=== PATIENT | male | born 1940 | race Caucasian/White ===

== ENCOUNTER 2019-03-31 17:49 | Emergency (ER) | payer OTHER, SELFPAY ==
[2019-03-31 17:54] VITALS: BP 173/87; PULSE 78; RESP 14; TEMP 37.2; O2SAT 99
--- NOTE | 2019-03-31 17:58 | DI.RAD.S_ITS ---
PROCEDURE: XR FOOT LT MIN 3V INDICATIONS: fall w/ pain mid foot. TECHNIQUE: 3 views of the foot were acquired. COMPARISON: None. 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 No suspicious bony lesions. Soft tissues: No tibiotalar joint effusion. Achilles tendon appears normal. IMPRESSION: No definite acute trauma found. Severe degenerative change first MTP joint. No joint effusion or significant soft tissue swelling is seen. Dictated by: Bhupinder Tran M.D. on 03/31/2019 at 19:13 Approved by: Bhupinder Tran M.D. on 03/31/2019 at 19:14
--- NOTE | 2019-03-31 19:14 | ED_ITS ---
HPI - Extremity Injury (Lower) <PASCUAL Gramajo - Last Filed: 03/31/19 19:42> General Chief Complaint: Extremity Injury, Lower Stated Complaint: L foot pain Time Seen by Provider: 03/31/19 17:59 Source: patient Mode of arrival: Ambulatory Limitations: no limitations History of Present Illness HPI Narrative: 78-year-old male complains of a dull aching 5/10 left-sided lateral foot pain after stepping off a porch. He states he 1st noticed the pain was able to bear weight but an hour later the pain worsened. He denies any previous injury to his foot. He denies any erythema or lesions. He denies hitting his head, chest pain, shortness of breath, dysuria, dizziness, or other concerning symptoms. Related Data Home Medications Medication Instructions Recorded Confirmed No Known Home Medications 03/31/19 03/31/19 Allergies Allergy/AdvReac Type Severity Reaction Status Date / Time No Known Drug Allergies Allergy Verified 03/31/19 17:58 Review of Systems <PASCUAL Gramajo - Last Filed: 03/31/19 19:42> Review of Systems Narrative: REVIEW OF SYSTEMS: GENERAL: Denies fever or chills. HENT: No head trauma. EYES: No double vision or vision loss. CARDIOVASCULAR: No chest pain or syncope. RESPIRATORY: No shortness of breath or cough. GASTROINTESTINAL: No nausea, vomiting, diarrhea, or constipation. GENITOURINARY: No flank pain or dysuria. MUSCULOSKELETAL: Complains of left foot pain, see HPI. INTEGUMENTARY: No rash, lesions, or pruritus. NEURO: No numbness, tingling. PSYCH: No behavior or mood changes. Patient History <PASCUAL Gramajo - Last Filed: 03/31/19 19:42> Medical/Surgical History Medical History No significant medical problems (Acute) Social History Smoking Status: Never smoker Family/Social History Social History Smoking Status: Never smoker alcohol intake frequency: 0-2 drinks per day Substance Use Type: does not use Exam <PASCUAL Gramajo - Last Filed: 03/31/19 19:42> Narrative Exam Narrative: PHYSICAL EXAMINATION: GENERAL: Well groomed, alert, and cooperative. Answers questions promptly and appropriately. Vital signs noted. HENT: Normocephalic, atraumatic. EYES: Symmetrical, sclera white, no periorbital swelling. CARDIOVASCULAR: Regular rate. RESPIRATORY: Normal respiratory rate, trachea midline, airway patent. No stridor, nasal flaring or accessory muscle use. MUSCULOSKELETAL: Tenderness to mid 5th metatarsal on left foot. Very minor swelling, no ecchymosis or erythema. 5/5 strength against resistance to right and left feet. Normal gait and coordination. Equal tone and mass bilaterally. EXTREMITIES: CMS intact. No pedal edema. SKIN: Warm, dry, soft, appropriate color for ethnicity. No lesions, rashes, or wounds. NEURO: Alert and Oriented X 3. No sensory deficits. PSYCH: Appropriate affect and mood. Initial Vital Signs Initial Vital Signs: Vital Signs Temperature 98.9 F 03/31/19 17:54 Pulse Rate 78 03/31/19 17:54 Respiratory Rate 14 03/31/19 17:54 Blood Pressure 173/87 H 03/31/19 17:54 Pulse Oximetry 99 03/31/19 17:54 <Nikki Purcell DO - Last Filed: 04/01/19 03:45> Initial Vital Signs Initial Vital Signs: Vital Signs Temperature 98.9 F 03/31/19 17:54 Pulse Rate 78 03/31/19 17:54 Respiratory Rate 14 03/31/19 17:54 Blood Pressure 173/87 H 03/31/19 17:54 Pulse Oximetry 99 03/31/19 17:54 Course <PASCUAL Gramajo - Last Filed: 03/31/19 19:42> Orders Ordered: ED Orders 03/31/19 17:58 XR foot LT min 3V Stat Vital Signs Vital signs: Vital Signs - 8 hr 03/31/19 17:54 Temperature 98.9 F Pulse Rate 78 Respiratory Rate 14 Blood Pressure 173/87 H Pulse Oximetry 99 <Nikki Purcell DO - Last Filed: 04/01/19 03:45> Orders Ordered: ED Orders 03/31/19 17:58 XR foot LT min 3V Stat Vital Signs Vital signs: Vital Signs - 8 hr 03/31/19 17:54 Temperature 98.9 F Pulse Rate 78 Respiratory Rate 14 Blood Pressure 173/87 H Pulse Oximetry 99 MDM - Extremity Injury (Lower) <PASCUAL Gramajo - Last Filed: 03/31/19 19:42> Lab Data Attestation: I reviewed the patient's lab results. Imaging Data Foot XR: Radiologist's impression: [address] [address] XRay Report Signed Patient: Geovanni Rock MMR#: [id number] : 9Acct:[id number] Age/Sex: 78 / MDate of Service: 03/31/19 Loc: ED Accession Number: [id number] Procedure: XR foot LT min 3V Ordering Provider: Luis Arrington D.O. PROCEDURE: XR FOOT LT MIN 3V INDICATIONS: fall w/ pain mid foot. TECHNIQUE: 3 views of the foot were acquired. COMPARISON: None. 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 No suspicious bony lesions. Soft tissues: No tibiotalar joint effusion. Achilles tendon appears normal. IMPRESSION: No definite acute trauma found. Severe degenerative change first MTP joint. No joint effusion or significant soft tissue swelling is seen. Dictated by: Bhupinder Tran M.D. on 03/31/2019 at 19:13 Approved by: Bhupinder Tran M.D. on 03/31/2019 at 19:14 [facility] Narrative Medical decision making narrative: Exam and history are consistent with foot strain. X-rays are negative for fractures. Patient denies needing any crutches or a walker as he states he can't put weight on his foot. He was offered an Carmine bandage but declined as he has multiple home. Return precautions given and follow-up instructions discussed. Discharge Plan Departure Patient Disposition: Home Clinical Impression: Acute foot pain Qualifiers: Laterality: left Qualified Code(s): M79.672 - Pain in left foot Discharge Date/Time: 03/31/19 19:34 Instructions: DI for Foot Sprain Activity Restrictions/Additional Instructions: Thank you for entrusting me with your care today. As discussed, your x-rays are negative for any fractures. He may use ice as needed for pain. Try to elevate your foot the next few days as often as possible. Follow up with your primary care provider in the next few weeks if your symptoms continue. Return emergency department if he develops chest pain, shortness of breath, syncope, slurred speech, or other concerning symptoms. Prescriptions: No Action No Known Home Medications RF: 0 Referrals: Shukri Duke MD [Primary Care Provider] -
== END 2019-03-31 19:34 | disposition home or self-care (01) ==
PROVIDERS: Emergency Provider Nurse Practitioner; PCP Internal Medicine
DX: M79.672 Pain in left foot (principal)
CPT/HCPCS: 73630; 99282; 99283

== ENCOUNTER → 2019-11-03 09:46 | Outpatient (CLI) | payer OTHER, SELFPAY ==
[2019-11-04 06:00] LABS: COVID19 Sendout Not Detected (Not Detect)
== END ==
PROVIDERS: PCP Internal Medicine; Visit Provider Registered Nurse
DX: Z01.818 Encounter for other preprocedural examination (principal)
CPT/HCPCS: 87635

== ENCOUNTER → 2020-07-15 14:59 | Outpatient (ROUT) | payer OTHER, SELFPAY ==
[2020-07-15 15:14] LABS: Aspartate Aminotransferase 31 IU/L (17-59); BUN Creatinine Ratio 10.7 (6-22); Blood Urea Nitrogen 9 mg/dL (9-20); Calcium 9.1 mg/dL (8.4-10.2); Carbon Dioxide 26 mmol/L (22-32); Chloride 106 mmol/L (98-107); Cholesterol 173 mg/dL (140-199); Estimated Glomerular Filt Rate > 60.0 mL/min (>60); Glucose 100 mg/dL (80-110); HDL Cholesterol 79 mg/dL (40-60); HEMOLYSIS < 15 (0-50); LDL Cholesterol Calculated 86 mg/dL (<100); Potassium 3.9 mmol/L (3.4-5.1); Sodium 138 mmol/L (137-145); Triglycerides 41 mg/dL (35-150)
== END ==
PROVIDERS: PCP Internal Medicine; Visit Provider Internal Medicine
DX: I10 Essential (primary) hypertension (principal); E78.2 Mixed hyperlipidemia
CPT/HCPCS: 80048; 80061; 84450

== ENCOUNTER → 2021-03-09 12:39 | Outpatient (CLI) | payer OTHER, SELFPAY ==
--- NOTE | 2021-03-09 12:44 | DI.RAD.S_ITS ---
PROCEDURE: XR LUMBAR SPINE 2-3V INDICATIONS: LT SIDE SCIATICA TECHNIQUE: 3 views of the lumbar spine were acquired. COMPARISON: None. FINDINGS: Bones: 5 [id number] vertebrae are present. There is grade 1 anterolisthesis of L3 on L4, L4 on L5 and L5 on S1. Degenerative disc disease is present, moderate at L4-L5 and L5-S1, [id number] at L1-L2, L2-L3 and L3-L4. Severe facet arthropathy at L2-L3, L3-L4, L4-L5 and L5-S1. No vertebral body compression fractures. No suspicious bony lesions. Soft tissues: Overlying bowel gas pattern is normal. No suspicious soft tissue calcifications. IMPRESSION: Moderate degenerative disc disease and severe facet arthropathy in lumbar spine. In this patient with sciatica, please consider MRI to evaluate the possibility of nerve root impingement. Dictated by: Jj Akhtar M.D. on 03/09/2021 at 14:46 Approved by: Jj Akhtar M.D. on 03/09/2021 at 14:48
== END ==
PROVIDERS: PCP Internal Medicine; Referring Provider Internal Medicine; Visit Provider Internal Medicine
DX: M54.32 Sciatica, left side (principal); M51.36 Other intervertebral disc degeneration, lumbar region; M47.816 Spondylosis without myelopathy or radiculopathy, lumbar region
CPT/HCPCS: 72100

== ENCOUNTER → 2021-03-25 10:59 | Outpatient (CLI) | payer OTHER, SELFPAY ==
--- NOTE | 2021-03-25 | DI.MRI.S_ITS ---
PROCEDURE: MR LUMBAR SPINE WO CON INDICATIONS: Spinal stenosis, lumbar region with neurogenic cla TECHNIQUE: Noncontrast sagittal T1 spin echo and T2 fast echo, sagittal STIR, axial T1 and T2 fast spin echo through the lumbar spine. In cases with scoliosis, additional coronal T2 fast spin echo may be performed. COMPARISON: [facility], CR, XR LUMBAR SPINE 2-3V, 03/09/2021, 12:43. [facility] [place], CR, XR LUMBAR SPINE 2 OR 3 VIEWS, 03/15/2021, 9:37. FINDINGS: Image quality: Excellent. Alignment and Curvature: There is grade 1 L4-L5 anterolisthesis secondary to facet hypertrophy. There is grade 1 L5-S1 anterolisthesis secondary to bilateral pars interarticularis defects. Bone Marrow: Reactive endplate changes noted adjacent the L4-L5 and L5-S1 discs. No acute vertebral body compression fractures. Spinal Cord: Conus medullaris terminates at the L1 level. Visualized cord demonstrates normal signal and size. Paraspinous Soft Tissues: No paravertebral masses. T12-L1: Loss of disc signal. Mild, diffuse disc bulge. No central stenosis. No neural foraminal narrowing. No neural compression. L1-L2: Loss of disc signal. Mild, diffuse disc bulge. Mild narrowing of the central canal. No neural foraminal narrowing. No neural compression. L2-L3: Loss of disc signal. Mild, diffuse disc bulge. Small left central disc protrusion. Mild bilateral facet hypertrophy. Moderate ligamentum flavum hypertrophy. Mild to moderate narrowing of the central canal. Left central disc protrusion abuts and slightly displaces the traversing left L3 nerve root. Mild to moderate right and mild left neural foraminal narrowing. L3-L4: Loss of disc signal. Mild, diffuse disc bulge. Ambc-rf-[id number] bilateral facet hypertrophy. Mild ligamentum flavum hypertrophy. Mild to moderate narrowing of the central canal. Moderate right and mild left neural foraminal narrowing. No neural compression. L4-L5: Loss of disc signal and height. Mild, diffuse disc bulge. Severe bilateral facet hypertrophy. Mild narrowing of the central canal. Moderate bilateral neural foraminal narrowing. No neural compression. L5-S1: Loss of disc signal and height. Mild, diffuse disc bulge. Severe bilateral facet hypertrophy. Mild narrowing of the central canal. Severe bilateral neural foraminal narrowing with compression of the exiting L5 nerve roots. IMPRESSION: 1. Grade 1 degenerative L4-L5 and isthmic L5-S1 spondylolisthesis. 2. Multilevel degenerative disc disease. 3. Multilevel facet arthropathy. 4. No severe central canal narrowing. 5. Severe bilateral L5-S1 neural foraminal narrowing with compression of the exiting bilateral L5 nerve roots. 6. Small left central L2-L3 disc protrusion which abuts and displaces the traversing left L3 nerve root. Dictated by: Meghan Smith MD, PhD on 03/25/2021 at 13:14 Approved by: Meghan Smith MD, PhD on 03/25/2021 at 13:22
== END ==
PROVIDERS: PCP Internal Medicine; Referring Provider Physical Medicine & Rehabilitation Pain Medicine; Visit Provider Physical Medicine & Rehabilitation Pain Medicine
DX: M48.062 Spinal stenosis, lumbar region with neurogenic claudication (principal); M43.17 Spondylolisthesis, lumbosacral region; M51.36 Other intervertebral disc degeneration, lumbar region; M48.07 Spinal stenosis, lumbosacral region; M51.26 Other intervertebral disc displacement, lumbar region; M51.37 Other intervertebral disc degeneration, lumbosacral region
CPT/HCPCS: 72148

== ENCOUNTER 2022-09-16 17:42 | Emergency (ER) | payer OTHER, SELFPAY ==
[2022-09-16 17:51] VITALS: BP 182/97; PULSE 79; RESP 17; TEMP 37.6; O2SAT 96; BMI 25.7
[2022-09-16 18:43] VITALS: BP 197/93; RESP 18; O2SAT 97
--- NOTE | 2022-09-16 19:29 | ED_ITS ---
HPI - Extremity Injury (Upper) <Bryce Llanos PA-C - Last Filed: 09/16/22 19:48> General Chief Complaint: Extremity Injury, Upper Stated Complaint: pain in rt elbow sent by [facility] Time Seen by Provider: 09/16/22 18:44 Source: patient Mode of arrival: Ambulatory History of Present Illness HPI narrative: This is an 82-year-old male presents to the emergency department complaining of right elbow pain onset 1 week ago. He is not recall any accident or injury to the area. He denies any fevers but just states that he has significant pain to the right elbow radiating to the right shoulder. Denies any numbness, weakness, inability to move his fingers, or any other concerning signs or symptoms. Denies any fevers or any other systemic symptoms. Related Data Previous Rx's Medication Instructions Recorded colchicine 0.6 mg capsule 0.6 mg PO DAILY 5 days #6 caps 09/16/22 Allergies Allergy/AdvReac Type Severity Reaction Status Date / Time No Known Drug Allergies Allergy Verified 09/16/22 17:53 Review of Systems <Bryce Llanos PA-C - Last Filed: 09/16/22 19:48> Review of Systems Narrative: GENERAL: Denies chills, fatigue, malaise, fever, sweats. HEENT: Denies sinus pain, ear pain, sore throat, difficulty swallowing, dizziness. RESPIRATORY: Denies dyspnea, cough, wheezing, hemoptysis, sputum. CARDIOVASCULAR: Denies chest pain, palpitations, orthopnea, edema, GASTROINTESTINAL: Denies nausea, vomiting, abdominal pain, diarrhea, constipation, melena. : Denies dysuria, frequency, incontinence, hematuria, urinary retention. MUSCULOSKELETAL: Right upper extremity pain SKIN: Denies rash, skin lesions, or other NEUROLOGIC: Denies weakness, headache, numbness, change in speech, confusion, seizures, incoordination. PSYCHIATRIC: No concerning psychosocial issues. 12 point review of systems is negative except for those stated above Patient History <Bryce Llanos PA-C - Last Filed: 09/16/22 19:48> Medical History Chronic insomnia Constipation by delayed colonic transit Do not resuscitate Essential hypertension Foot pain Hearing loss Mixed hyperlipidemia No significant medical problems Obstructive sleep apnea Ocular migraine Rheumatoid arthritis Sleep apnea Family History Mother Cancer Brother Diabetes mellitus Social History Smoking Status: Former smoker Smoking Status: Former smoker alcohol intake frequency: a few times a week Substance Use Type: does not use Exam <Bryce Llanos PA-C - Last Filed: 09/16/22 19:48> Narrative Exam Narrative: GENERAL: Well-developed patient, in mild distress. HEAD: Atraumatic. Normocephalic. EYES: Pupils equal round and reactive. Extraocular motions intact. No scleral icterus. No injection or drainage. ENT: Nose without bleeding, purulent drainage. Throat without erythema, tonsillar hypertrophy or exudate. Airway patent. NECK: Trachea midline. Non tender CARDIOVASCULAR: Regular rate and rhythm without murmurs, gallops, or rubs. RESPIRATORY: Clear to auscultation. Breath sounds equal bilaterally. No wheezes, rales, or rhonchi. GASTROINTESTINAL: Abdomen soft, non-tender, nondistended. EXTREMITIES: Right elbow appears larger than left although the patient states that this is chronic for him. Patient is neurovascularly intact throughout with 3+ radial pulses bilaterally. Tenderness to palpation generalized to the right elbow. No joint stiffness noted although patient is painful with flexion and extension at the elbow. No erythema around the joint. BACK: Nontender without deformity or crepitance. No flank tenderness. NEURO: AOx3. SKIN: No rash or erythema of visible areas Initial Vital Signs Initial Vital Signs: Vital Signs Temperature 99.6 F 09/16/22 17:51 Pulse Rate 79 09/16/22 17:51 Respiratory Rate 17 09/16/22 17:51 Blood Pressure 182/97 H 09/16/22 17:51 Pulse Oximetry 96 09/16/22 17:51 Oxygen Delivery Method Room Air 09/16/22 17:51 <Nikki Purcell DO - Last Filed: 09/17/22 07:12> Initial Vital Signs Initial Vital Signs: Vital Signs Temperature 99.6 F 09/16/22 17:51 Pulse Rate 79 09/16/22 17:51 Respiratory Rate 17 09/16/22 17:51 Blood Pressure 182/97 H 09/16/22 17:51 Pulse Oximetry 96 09/16/22 17:51 Oxygen Delivery Method Room Air 09/16/22 17:51 Course <Bryce Llanos PA-C - Last Filed: 09/16/22 19:48> Orders Ordered: Discontinued Medications Ketorolac Tromethamine (Ketorolac 30 Mg/Ml Vial) 15 mg IM NOW ONE Stop: 09/16/22 19:17 Last Admin: 09/16/22 19:43 Dose: 15 mg Documented By: SPF Vital Signs Vital signs: Vital Signs - 8 hr 09/16/22 17:51 09/16/22 18:43 09/16/22 19:42 Temperature 99.6 F Pulse Rate 79 69 Respiratory Rate 17 18 18 Blood Pressure 182/97 H 197/93 H 187/94 H Pulse Oximetry 96 97 96 Oxygen Delivery Method Room Air Room Air Room Air <Nikki Purcell DO - Last Filed: 09/17/22 07:12> Orders Ordered: Discontinued Medications Ketorolac Tromethamine (Ketorolac 30 Mg/Ml Vial) 15 mg IM NOW ONE Stop: 09/16/22 19:17 Last Admin: 09/16/22 19:43 Dose: 15 mg Documented By: SPF Vital Signs Vital signs: Vital Signs - 8 hr 09/16/22 17:51 09/16/22 18:43 09/16/22 19:42 Temperature 99.6 F Pulse Rate 79 69 Respiratory Rate 17 18 18 Blood Pressure 182/97 H 197/93 H 187/94 H Pulse Oximetry 96 97 96 Oxygen Delivery Method Room Air Room Air Room Air MDM - Extremity Injury (Upper) <Bryce Llanos PA-C - Last Filed: 09/16/22 19:48> MDM Narrative Medical decision making narrative: MDM * differential diagnosis includes but not limited to right elbow fracture, septic joint, lateral epicondylitis, gout * Prior records reviewed: Patient was seen at the walk-in clinic just previously advised to come to the emergency department for further pain evaluation treatments * My lab interpretation: None * My imgaing interpretation: None * Clinical Decision Rules/Scores evaluated: None * Independent discussions with: None ED Course: This is a 82-year-old male presenting to the emergency department due to right elbow pain. Offered a right elbow x-ray of the patient declined as there was no acute injury to the area and he had low concern or suspicion for any fractures. Patient joint did not appear erythematous or warm to the touch and did not expressed any joint stiffness concerning for septic joint. Maybe muscular in nature and recommended rest, ice, and NSAIDs. Also prescribed colchicine this is any kind of gout flare. Patient's right elbow appeared larger than the left although patient states this is chronic for him. The remainder of his right upper extremity did not appear swollen and low concern for any kind of upper extremity DVT. Recommended follow up with his primary care provider on Monday for further evaluation and possible imaging. Toradol given today in the emergency department. Patient also did present with elevated blood pressure although he did not describe any kind of chest pain, abdominal pain, hematuria, or headaches. Will discharge with recommendations for him to follow up with his primary care provider for further blood pressure rechecks and evaluation. Shared Decision Making: Discussed plan for discharge with the patient who is agreeable Social Considerations: None Disposition: Discharged to home Discharge Plan Departure Patient Disposition: Home Clinical Impression: Elbow pain, right Instructions: DI for Elbow Sprain Activity Restrictions/Additional Instructions: Thank you for coming to the [facility] Emergency Department today. As discussed recommended follow up with the primary care provider for further evaluation regarding the right elbow. I also recommend you speak with him regarding your blood pressure values as they were elevated stay in the emergency department. The Toradol give me today should help with the pain. I have also prescribed a anti-inflammatory medication that may help as well. I hope you feel better soon. Prescriptions: New colchicine 0.6 mg capsule 0.6 mg PO DAILY 5 Days Qty: 6 0RF Rx Instructions: Please take two capsules the first day, then one capsule each day after that Referrals: Hadley Kelly MD [Primary Care Provider] - Stand Alone Forms: Patient Portal/API <Nikki Purcell DO - Last Filed: 09/17/22 07:12> Cosign ED Attending Costateature Attestation: I was immediately available in the department for consultation. Documentation has been reviewed.
[2022-09-16 19:42] VITALS: BP 187/94; PULSE 69; RESP 18; O2SAT 96
[2022-09-16] MEDS: KETOROLAC 30 MG/ML VIAL 15 MG IM (19:43)
--- NOTE | 2022-09-16 19:48 | PC.NURSE ---
Patient states he is not sure what exactly triggered his elbow pain, but he has been working out in his yard yesterday.
== END 2022-09-16 19:53 | disposition home or self-care (01) ==
PROVIDERS: Emergency Provider Physician Assistant Medical; PCP Family Medicine
DX: M25.521 Pain in right elbow (principal)
CPT/HCPCS: 96372; 99283; J1885

== ENCOUNTER → 2025-05-29 08:56 | Outpatient (CLI) | payer OTHER, SELFPAY ==
--- NOTE | 2025-05-29 12:55 | ST.SWALLOW ---
Visit Care Team Role Provider Type Hadley Kelly MD Attending Provider Physician Primary Care Provider Referring Provider Specialty: Family Practice Address: [facility] [place], [address] Email: [email or web address] ST Modified Barium Swallow Study [employer] Modified Barium Swallow Study Start: 05/29/25 10:21 Freq: Status: Active Protocol: Document 05/29/25 10:21 LNK (Rec: 05/29/25 10:52 LNK Desktop) Modified Barium Swallow Study Total Time Visit Start Time 09:00 Visit Stop Time 09:45 Total Visit Minutes [address] Kelly Reason for Referral Dysphagia Setting Setting Outpatient Care Patient Information Identification Type Name,Date of Patient History Pt was seen for a Modified Barium Swallow Study at the referral of Dr. Kelly. According to the pt, he has had difficulty with swallowing for around 8 years. He noted that he eats primarily soups and purees other foods. He reported that he has no difficulty with smooth textured foods (potatoes mashed smoothly, breads if he chews well enough to puree the bolus). He also noted he has no difficulty swallowing liquids. However pills are the most difficult to swallow describing them as not going down the tube, getting stuck and needing a lot of water to flush the pill down. Pt also noted that, at times, he will regurgitate non digested food back into his mouth, then re-swallow Pt denied a PMH of GERD, neurological diagnoses, head/ neck surgery/injury. He has not had pneumonia. Subjective Pt was seated in the flouroscopy chair with directions Observations and procedures explained for him. He indicated he understood and agreed to proceed. Patient Positioning Position View Lat-A/P Imaging Lateral View Textures Administered Trials Presented Thin Liquid via Spoon (IDDSI 0),Thin Liquid via Cup ( IDDSI 0),Regular (IDDSI 7) Barium Tablet Yes The IDDSI Framework Protocol: IDDSI.1 Oral Impairment Source: The Modified Barium Swallow Impairment Profile (MBSImP??) Lip Closure Interlabial escape; no progression to anterior lip Tongue Control Cohesive bolus between tongue to palatal seal During Bolus Hold Bolus Transport/ Brisk tongue motion Lingual Motion Oral Residue Complete oral clearance Initiation of Bolus head at posterior angle of ramus (first hyoid Pharyngeal Swallow excursion) Additional Oral *OME and DKS were observed to be WNL. Impairment *Dentition natural with an upper flipper partial and in Observations good hygiene *Mastication observed with rotary chew pattern. *Good bolus formation, control and AP transition. *Velopharyngeal closure was WNL. Oral phase of swallow WNL Pharyngeal Impairment Source: The Modified Barium Swallow Impairment Profile (MBSImP??) Soft Palate No bolus between soft palate & pharyngeal wall Elevation Laryngeal Elevation Comp.sup.move.thyroid cart.w/comp.approx.arytenoids to epiglot petiole Anterior Hyoid Partial anterior movement Excursion Epiglottic Movement Complete inversion Laryngeal Vestibular Complete; no air/contrast in laryngeal vestibule Closure Pharyngeal Stripping Present - complete Wave Pharyngoesophageal Complete distention & complete duration; no obstruction Segment Opening of flow Tongue Base Trace column of contrast/air betwn tongue base & post. Retraction pharyngeal wall Pharyngeal Residue Trace residue within/on pharyngeal structures Location Valleculae Additional *Hyoid/laryngeal elevation and epiglottic inversion Pharyngeal were judged to be adequate. Impairment *Tongue base retraction was mildly reduced resulting in Observations trace residue. *Pharyngeal stripping wave and cricopharyngeal opening appeared adequate and did not appear to impede bolus flow. *Post-swallow residue was mild primarily at the vallecula *Flash penetration (above the vocal folds with no laryngeal residue - PAS 2) observed x2 with consecutive swallows (e.g., fast rate with large volume) ( Considered to be WNL for pt's age) *No tracheal aspiration observed *Large CP bar noted. did not impede bolus flow Pharyngeal phase of swallow WNL for pt age A/P View Textures Administered Trials Presented Thin Liquid via Cup (IDDSI 0),Extremely Thick Liquid via Spoon (IDDSI 4),Regular (IDDSI 7) The IDDSI Framework Protocol: IDDSI.1 A/P View Observations Pharyngeal Complete Contraction Esophageal Clearance Esophageal retention w/regtrograde flow below Upright Position pharyngoesoph segment Vocal Fold Function Good Esophageal Function Reverse Peristalsis,Narrowing Additional A-P Thin barium liquid, semi-soft/pudding trial and Observations calibrated barium table were provided to the pt for AP trials *Possible small hiatal hernia noted. *Retro flow of esophageal contents with liquid and semisolid trials. Reverse flow to the clavicular level, then slow clearance to the stomach with repeated reverse flow. *With a barium tablet trial, the tablet stopped in that area and was not flushed with additional water. Semi- soft trial was then observed to get to the tablet and stopped/could not pass the tablet. *The retained tablet/semi-soft bolus may be related to pt's report of regurgitation/rumination. It would be possible that, during a meal, continued eating/ swallowing would lead to a stacking effect within the esophagus to the point of needing to eliminate esophageal contents *The MBSS stopped before tablet and semi-solid bolus passed to the stomach GI referral recommended Clinical Impressions Dysphagia Type Esophageal Findings *Possible small hiatal hernia noted. *Retro flow of esophageal contents with liquid and semisolid trials. Reverse flow to the clavicular level, then slow clearance to the stomach with repeated reverse flow. *With a barium tablet trial, the tablet stopped in that area and was not flushed with additional water. Semi- soft trial was then observed to get to the tablet and stopped/could not pass the tablet. *The retained tablet/semi-soft bolus may be related to pt's report of regurgitation/rumination. It would be possible that, during a meal, continued eating/ swallowing would lead to a stacking effect within the esophagus to the point of needing to eliminate esophageal contents *The MBSS stopped before tablet and semi-solid bolus passed to the stomach GI referral recommended Patient Appropriate No for Therapy Recommendations Diet Comments No diet change recommended Treatment Plan Recommended GI Consult Referrals
== END ==
LOC: RAD 08:58
PROVIDERS: PCP Family Medicine; Referring Provider Family Medicine; Visit Provider Family Medicine
DX: R13.19 Other dysphagia (principal)
CPT/HCPCS: 74230; 92611